=== PATIENT | female | born 2000 | race African-American/Black ===

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

== ENCOUNTER 2022-01-13 20:13 | Emergency (ER) | payer SELFPAY ==
[2022-01-13 20:37] VITALS: BP 138/84
== END 2022-01-14 14:18 | disposition left against medical advice (07) ==
LOC: ED 20:13
DX: T78.40XA Allergy, unspecified, initial encounter (principal); Z53.21 Procedure and treatment not carried out due to patient leaving prior to being seen by health care provider; X58.XXXA Exposure to other specified factors, initial encounter